=== PATIENT | male | born 1945 | race Two or more races ===

== ENCOUNTER 2024-03-24 17:53 | Emergency (ER) | payer SELFPAY ==
[~2024-03-24] VITALS: Ht 170.2 cm; Wt 127.0 kg
[2024-03-24 18:03] VITALS: BP 137/71; PULSE 61; RESP 18; TEMP 98.8; O2SAT 99
[2024-03-24] MEDS ORDERED: SODIUM CHLORIDE 0.9% 1,000 ML IV ONE (18:30)
== END 2024-03-24 19:35 | disposition left against medical advice (07) ==
LOC: ER 17:53
DX: R55 Syncope and collapse (principal); I48.91 Unspecified atrial fibrillation
CPT/HCPCS: 99283; 71045; 93005; J7030